=== PATIENT | female | born 1965 | race Caucasian/White ===

== ENCOUNTER → 2020-11-26 | Outpatient (CLI) | payer MEDICARE ==
[~2020-11-26] MED LIST: CYMBALTA60 MG PO; HYDROCHLOROTHIA25 MG PO; LIPITOR40 MG PO; LISINOPRIL40 MG PO; MORPHINE SULFAT30 M4 PO; NARCAN 2 MG/21 MG/ML; NARCAN SPRAY; OMEPRAZOLE20 M1 PO; OXYCODONE HCL20 MG PO; VENTOLIN HFA 66.7 GM INH; VITAMIN D PO; XYZAL5 MG PO; ZANAFLEX 4 MG TA4 MG PO
== END ==
LOC: KOH-I 08:00
DX: M23.91 Unspecified internal derangement of right knee (principal); M25.461 Effusion, right knee; M25.361 Other instability, right knee; R93.6 Abnormal findings on diagnostic imaging of limbs; S83.281A Other tear of lateral meniscus, current injury, right knee, initial encounter; W19.XXXA Unspecified fall, initial encounter
CPT/HCPCS: 73721

== ENCOUNTER → 2020-12-10 | Outpatient (CLI) | payer MEDICARE ==
[2020-12-10 11:31] LABS: HEMOGLOBIN 11.7 gm/dl (12.3-15.3); RED BLOOD COUNT 4.22 M/UL (4.00-5.10); WHITE BLOOD COUNT 5.2 K/UL (4.5-11.0)
[2020-12-10 11:52] LABS: BUN/CREATININE RATIO 8 (0-10)
== END ==
LOC: OPSV2 10:30
PROVIDERS: Orthopaedic Surgery
DX: Z01.818 Encounter for other preprocedural examination (principal); S83.206A Unspecified tear of unspecified meniscus, current injury, right knee, initial encounter; R94.31 Abnormal electrocardiogram [ECG] [EKG]; X58.XXXA Exposure to other specified factors, initial encounter
CPT/HCPCS: 80048; 85025; 93005

== ENCOUNTER → 2020-12-20 | Day surgery (SDC) | payer MEDICARE ==
[~2020-12-20] VITALS: Ht 165.1 cm; Wt 71.2 kg
== END | disposition home or self-care (01) ==
LOC: OR 12-13 07:30
PROVIDERS: Orthopaedic Surgery
PROC: 0SBC4ZZ Excision of Right Knee Joint, Percutaneous Endoscopic Approach (ICD-10-PCS; principal; 2020-12-20 10:30)
DX: S83.231A Complex tear of medial meniscus, current injury, right knee, initial encounter (principal); M22.41 Chondromalacia patellae, right knee; M23.41 Loose body in knee, right knee; M94.251 Chondromalacia, right hip; I10 Essential (primary) hypertension; E78.5 Hyperlipidemia, unspecified; J45.909 Unspecified asthma, uncomplicated; K21.9 Gastro-esophageal reflux disease without esophagitis; M79.7 Fibromyalgia; Z79.891 Long term (current) use of opiate analgesic; Z79.899 Other long term (current) drug therapy; Z88.1 Allergy status to other antibiotic agents; Z88.0 Allergy status to penicillin; Z88.6 Allergy status to analgesic agent; Z91.013 Allergy to seafood; Z88.8 Allergy status to other drugs, medicaments and biological substances; X50.1XXA Overexertion from prolonged static or awkward postures, initial encounter
CPT/HCPCS: J0171; J1100; J2001; J2250; J2405; J2704; J3010; J7120